=== PATIENT | female | born 1950 | race Hispanic/Latino ===

== ENCOUNTER 2019-10-03 16:06 | Emergency (ER) | payer MEDICARE ==
[2019-10-03 16:57] LABS: Basophils % (Auto) 0.7 % (0.0-1.8); Eosinophils # (Auto) 0.1 K/mm3 (0.0-0.4); Eosinophils % (Auto) 2.4 % (0.0-4.3); Hematocrit 36.8 % (30.3-42.9); Hemoglobin 12.1 gm/dl (10.1-14.3); Lymphocytes # (Auto) 1.2 K/mm3 (1.2-5.4); Mean Corpuscular HGB Conc 33 % (30-34); Mean Corpuscular Volume 94 fl (79-97); Monocytes # (Auto) 0.5 K/mm3 (0.0-0.8); Monocytes % (Auto) 8.7 % (0.0-7.3); Platelet Count 269 K/mm3 (140-440); Red Cell Distribution Width 12.4 % (13.2-15.2)
[2019-10-03] MEDS ORDERED: ONDANSETRON 4 MG/2 ML INJ IV ONE (17:02)
[2019-10-03 17:07] LABS: INR 0.89 (0.87-1.13)
[2019-10-03 17:08] LABS: Partial Thromboplastin Time 26.4 Sec. (24.2-36.6)
[2019-10-03 17:10] LABS: BUN/Creatinine Ratio 30; Blood Urea Nitrogen 24 mg/dL (7-17); Calcium 9.3 mg/dL (8.4-10.2); Hemolysis Index 2
[2019-10-03 17:14] LABS: Alanine Aminotransferase 43 units/L (7-56)
[2019-10-03 17:18] LABS: Bilirubin,Direct < 0.2 mg/dL (0-0.2)
--- NOTE | 2019-10-03 17:52 | Emergency Department Report ---
ED General Adult HPI - General Chief complaint: GI Bleed Stated complaint: POSS LOWER GI BLEED Time Seen by Provider: 10/03/19 16:45 Source: patient, EMS Mode of arrival: Stretcher Limitations: Altered Mental Status - History of Present Illness Initial comments: This is a 68-year-old lady who was an inpatient at [facility]. She is able to answer questions but does have a limited ability to give a history. Apparently she has been having some degree of lower GI bleeding over the last few days. Patient describes it as small in quantity. She gives a graphic description of vomiting stating that "there were fish in it". She does not describe anything like coffee ground emesis or hematemesis. Apparently she was thought to have left lower quadrant pain by the contact representative in [place]. However she tells me that it is been mostly the right lower quadrant of her abdomen but also seems to radiate to the left side. Medication he has had some lower abdominal discomfort. She does not complain of acute pain at all at the time of my encounter. She states that she has been somewhat nauseated but is not actively so. She has a history of COPD and is on chronic oxygen. She does not complain of acute dyspnea or chest discomfort. She states that she has had a colonoscopy without abnormal findings but does not recall when. Apparently she does have a history of dementia. Her anchor records patient indicate that the patient has a history of dementia, COPD, atrial fibrillation, dystonia. Her current medications include Haldol Seroquel aspirin diltiazem benazepril furosemide lisinopril and a statin. Transfer records indicate that the contact representative at [place] was concerned that the patient might have diverticulitis. -: Gradual, days(s) Location: abdomen Radiation: other Quality: aching (Lower quadrants) Consistency: intermittent, now resolved Improves with: none Worsens with: none Associated Symptoms: other (Blood in the stool) Treatments Prior to Arrival: none - Related Data Allergies Allergy/AdvReac Type Severity Reaction Status Date / Time No Known Allergies Allergy Verified 10/03/19 16:14 ED Review of Systems ROS: Stated complaint: POSS LOWER GI BLEED Other details as noted in HPI Constitutional: denies: chills, fever Eyes: eye discharge. denies: eye pain, vision change ENT: denies: ear pain, throat pain Respiratory: shortness of breath (Chronic). denies: cough Cardiovascular: denies: chest pain, palpitations Endocrine: unexplained weight loss (Patient states that she has lost about 40 to 50 pounds in the last 3 to 4 months) Gastrointestinal: abdominal pain, nausea, hematochezia. denies: diarrhea Genitourinary: denies: urgency, dysuria, discharge Musculoskeletal: denies: back pain, joint swelling, arthralgia Skin: denies: rash, lesions Neurological: denies: headache, weakness, paresthesias Psychiatric: denies: anxiety, depression Hematological/Lymphatic: denies: easy bleeding, easy bruising ED Past Medical Hx - Past Medical History Previous Medical History?: Yes Hx Hypertension: Yes Hx COPD: Yes Hx Dementia: Yes - Surgical History Past Surgical History?: No - Social History Smoking Status: Former Smoker Substance Use Type: None ED Physical Exam - General Limitations: Other (Mental status consistent with schizophrenia) General appearance: alert, in no apparent distress - Head Head exam: Present: atraumatic, normocephalic - Eye Eye exam: Present: normal appearance. Absent: scleral icterus - ENT ENT exam: Present: mucous membranes moist - Neck Neck exam: Present: normal inspection. Absent: tenderness, meningismus - Respiratory Respiratory exam: Present: decreased breath sounds (Somewhat distant). Absent: respiratory distress, wheezes - Cardiovascular Cardiovascular Exam: Present: regular rate, normal rhythm. Absent: systolic murmur, diastolic murmur, rubs, gallop - GI/Abdominal GI/Abdominal exam: Present: soft, normal bowel sounds. Absent: distended, tenderness, guarding, rebound, rigid - Extremities Exam Extremities exam: Present: normal inspection - Back Exam Back exam: Present: normal inspection - Neurological Exam Neurological exam: Present: alert, oriented X3, CN II-XII intact. Absent: motor sensory deficit - Psychiatric Psychiatric exam: Present: normal mood, flat affect - Skin Skin exam: Present: warm, dry, intact, normal color. Absent: rash ED Course Vital Signs 10/03/19 17:54 Pulse Rate 80 Respiratory 17 Rate Blood Pressure 116/77 [Left] O2 Sat by Pulse 98 Oximetry ED Medical Decision Making - Lab Data Result diagrams: 10/03/19 16:40 10/03/19 16:40 Laboratory Results - last 24 hr 10/03/19 10/03/19 10/03/19 16:40 16:40 16:48 WBC 5.8 RBC 3.90 Hgb 12.1 Hct 36.8 MCV 94 MCH 31 MCHC 33 RDW 12.4 L Plt Count 269 Lymph % (Auto) 20.0 [place] % (Auto) 8.7 H Eos % (Auto) 2.4 Baso % (Auto) 0.7 Lymph # 1.2 [place] # 0.5 Eos # 0.1 Baso # 0.0 Seg Neutrophils % 68.2 Seg Neutrophils # 4.0 PT 12.2 INR 0.89 APTT 26.4 Sodium 145 Potassium 4.3 Chloride 102.7 Carbon Dioxide 31 H Anion Gap 16 BUN 24 H Creatinine 0.8 Estimated GFR > 60 BUN/Creatinine Ratio 30 Glucose 90 Calcium 9.3 Magnesium Total Bilirubin Direct Bilirubin Indirect Bilirubin AST ALT Alkaline Phosphatase NT-Pro-B Natriuret Pep Total Protein Albumin Albumin/Globulin Ratio Blood Type Antibody Screen 10/03/19 10/03/19 16:48 16:48 WBC RBC Hgb Hct MCV MCH MCHC RDW Plt Count Lymph % (Auto) [place] % (Auto) Eos % (Auto) Baso % (Auto) Lymph # [place] # Eos # Baso # Seg Neutrophils % Seg Neutrophils # PT INR APTT Sodium Potassium Chloride Carbon Dioxide Anion Gap BUN Creatinine Estimated GFR BUN/Creatinine Ratio Glucose Calcium Magnesium 2.20 Total Bilirubin 0.20 Direct Bilirubin < 0.2 Indirect Bilirubin 0.0 AST 35 ALT 43 Alkaline Phosphatase 93 NT-Pro-B Natriuret Pep 166.2 Total Protein 6.4 Albumin 4.0 Albumin/Globulin Ratio 1.7 Blood Type O POSITIVE Antibody Screen Negative Laboratory Results - last 24 hr 10/03/19 10/03/19 10/03/19 16:40 16:40 16:48 WBC 5.8 RBC 3.90 Hgb 12.1 Hct 36.8 MCV 94 MCH 31 MCHC 33 RDW 12.4 L Plt Count 269 Lymph % (Auto) 20.0 [place] % (Auto) 8.7 H Eos % (Auto) 2.4 Baso % (Auto) 0.7 Lymph # 1.2 [place] # 0.5 Eos # 0.1 Baso # 0.0 Seg Neutrophils % 68.2 Seg Neutrophils # 4.0 PT 12.2 INR 0.89 APTT 26.4 Sodium 145 Potassium 4.3 Chloride 102.7 Carbon Dioxide 31 H Anion Gap 16 BUN 24 H Creatinine 0.8 Estimated GFR > 60 BUN/Creatinine Ratio 30 Glucose 90 Calcium 9.3 Magnesium Total Bilirubin Direct Bilirubin Indirect Bilirubin AST ALT Alkaline Phosphatase NT-Pro-B Natriuret Pep Total Protein Albumin Albumin/Globulin Ratio Blood Type Antibody Screen 10/03/19 10/03/19 16:48 16:48 WBC RBC Hgb Hct MCV MCH MCHC RDW Plt Count Lymph % (Auto) [place] % (Auto) Eos % (Auto) Baso % (Auto) Lymph # [place] # Eos # Baso # Seg Neutrophils % Seg Neutrophils # PT INR APTT Sodium Potassium Chloride Carbon Dioxide Anion Gap BUN Creatinine Estimated GFR BUN/Creatinine Ratio Glucose Calcium Magnesium 2.20 Total Bilirubin 0.20 Direct Bilirubin < 0.2 Indirect Bilirubin 0.0 AST 35 ALT 43 Alkaline Phosphatase 93 NT-Pro-B Natriuret Pep 166.2 Total Protein 6.4 Albumin 4.0 Albumin/Globulin Ratio 1.7 Blood Type O POSITIVE Antibody Screen Negative - Radiology Data Radiology results: report reviewed ABDOMEN: The gallbladder, liver, spleen and pancreas are normal. Punctate intrarenal calcification is seen in the upper pole collecting system of the left kidney. No hydronephrosis or renal abnormalities. No adrenal masses or retroperitoneal adenopathy. No small bowel dilatation. Pelvis: No dependent fluid collections or inflammatory changes are seen in the pelvis. Asymmetrical density is demonstrated in the left side of the rectum. This may be adherent stool but recommend correlation with physical exam findings for possible rectal mass. No inguinal adenopathy. Degenerative changes are seen in the lumbar spine. No other significant skeletal abnormalities. IMPRESSION: 1. Left rectal wall asymmetry, adherent solid fecal material versus mass. 2. Left nephrolithiasis with no hydronephrosis. Critical care attestation.: If time is entered above; I have spent that time in minutes in the direct care of this critically ill patient, excluding procedure time. ED Disposition Clinical Impression: Rectal mass, Lower GI bleeding Disposition: DC-01 TO HOME OR SELFCARE Is pt being admited?: No Does the pt Need Aspirin: No Condition: Stable Instructions: Rectal Bleeding (ED) Additional Instructions: There was a possible abnormality in the rectum. This requires further evaluation and work-up by a job order clerk. See referral. Return to the emergency department any significant bleeding, fever, pain as needed. Referrals: [facility] [Provider Group] - 3-5 Days Forms: Accompanied Note Time of Disposition: 19:29
--- NOTE | 2019-10-03 19:02 | Cat Scan Report ---
CT abdomen pelvis w con INDICATION / CLINICAL INFORMATION: MAIN: Right lower quadrant pain, lower GI bleeding, [id number] 10ml. TECHNIQUE: All CT scans at this location are performed using CT dose reduction for ALARA by means of automated e xposure control. COMPARISON: None available. FINDINGS: No acute pulmonary disease on limited lower thoracic images. ABDOMEN: The gallbladder, liver, spleen and pancreas are normal. Punctate intrarenal calcification is seen in the upper pole collecting system of the left kidney. No hydronephrosis or renal abnormalities. No adrenal masses or retroperitoneal adenopathy. No small bowel dilatation. Pelvis: No dependent fluid collections or inflammatory changes are seen in the pelvis. Asymmetrical density is demonstrated in the left side of the rectum. This may be adherent stool but r ecommend correlation with physical exam findings for possible rectal mass. No inguinal adenopathy. Degenerative changes are seen in the lumbar spine. No other significant skeletal abnormalities. IMPRESSION: 1. Left rectal wall asymmetry, adherent solid fecal material versus mass. 2. Left nephrolithiasis with no hydronephrosis. Signer Name: Deangelo Douglas MD Signed: 10/03/2019 6:58 PM Workstation Name: [id number]
[2019-10-03 20:33] VITALS: BP 122/58
== END 2019-10-03 21:52 | disposition home or self-care (01) ==
LOC: ED 16:06
DX: K92.2 Gastrointestinal hemorrhage, unspecified (principal); K62.89 Other specified diseases of anus and rectum; J44.9 Chronic obstructive pulmonary disease, unspecified; F03.90 Unspecified dementia, unspecified severity, without behavioral disturbance, psychotic disturbance, mood disturbance, and anxiety; I48.91 Unspecified atrial fibrillation; I10 Essential (primary) hypertension; Z87.891 Personal history of nicotine dependence
CPT/HCPCS: 36415; 74177; 80048; 80076; 83735; 83880; 85025; 85610; 85730; 86850; 86900; 86901; 96374; 99284; J2405; Q9967